=== PATIENT | male | born 1975 | race Caucasian/White ===

== ENCOUNTER 2021-06-15 11:06 | Outpatient (CLI) | payer BC ==
[2021-06-15 12:18] LABS: SARS-CoV-2 NAA Rapid Test DETECTED (NotDetected)
== END 2021-06-15 11:07 | disposition home or self-care (01) ==
LOC: ER/OP 11:06
PROVIDERS: ATTEND Pediatrics
DX: U07.1 COVID-19 (principal)
CPT/HCPCS: U0002

== ENCOUNTER 2022-11-04 11:14 | Outpatient (CLI) | payer BC ==
[2022-11-04 17:41] LABS: #Basophils 0.1 10x3/uL (0.0-0.2); #Eosinphils 0.1 10x3/uL (0.0-0.5); #Monocytes 0.6 10x3/uL (0.0-1.1); #Neutrophils 3.5 10x3/uL (1.5-8.4); %Basophils 0.9 % (0.0-2.0); %Eosinophils 1.7 % (0.0-6.0); %Lymphocytes 38.6 % (18.0-47.0); %Neutrophils 49.7 % (40.0-75.0); Hemoglobin 13.4 g/dL (13.5-17.5); Mean Corpuscular Volume 88.7 fl (81.2-95.1); Mean Platelet Volume 11.2 fl (7.4-10.4); Platelet Count 201 10x3/uL (150-450); RBC Distribution Width 11.9 % (11.5-14.5); Red Blood Cell (RBC) Count 4.32 10x6/uL (4.32-5.72)
[2022-11-04 17:50] LABS: Anion Gap 13 mmol/L (10-20); BUN (Urea Nitrogen) 23 mg/dL (8.9-20.6); Calc. Creatinine Clearance 0 mL/min (70-130); Calcium 9.5 mg/dL (7.8-10.44); Carbon Dioxide 24 mmol/L (22-29); Chloride 106 mmol/L (98-107); Estimated GFR 93; Glucose 99 mg/dL (70-105); Potassium 4.3 mmol/L (3.5-5.1); Sodium 139 mmol/L (136-145)
== END 2022-11-04 11:15 | disposition home or self-care (01) ==
LOC: LABBT 11:14
PROVIDERS: ATTEND Surgery
DX: Z01.812 Encounter for preprocedural laboratory examination (principal); K40.20 Bilateral inguinal hernia, without obstruction or gangrene, not specified as recurrent; K42.9 Umbilical hernia without obstruction or gangrene
CPT/HCPCS: 80048; 85025

== ENCOUNTER 2022-11-09 10:11 | Day surgery (SDC) | payer BC ==
[2022-11-05 16:13] VITALS: BMI 22.4
[2022-11-09] MEDS ORDERED: Levofloxacin 500 mg/D5W 100 ml Premix Bag ONE (11:17)
[2022-11-09] MEDS ORDERED: Bupivacaine/Epinephrine 0.25% 30 ML VIAL ONE (11:17)
[2022-11-09] MEDS ORDERED: Bupivacaine PF 0.5% 30 ML VIAL ONE ×2 (11:17→12:21)
[2022-11-09] MEDS ORDERED: Acetaminophen 500 MG TAB ONE (11:17)
[2022-11-09] MEDS ORDERED: Piperacillin/Tazobactam 3.375 GM VIAL ONE (11:17)
[2022-11-09] MEDS ORDERED: fentaNYL PF 100 MCG/2 ML SYRINGE ONE (11:33)
[2022-11-09] MEDS ORDERED: Midazolam HCl 2 mg/2 ml Vial ONE (11:57)
[2022-11-09] MEDS ORDERED: Lidocaine 1% PF 5 ML VIAL ONE (12:08)
[2022-11-09] MEDS ORDERED: Ketorolac Tromethamine 30 MG/ML VIAL ONE (12:08)
[2022-11-09] MEDS ORDERED: ePHEDrine 50 MG/ML VIAL ONE (12:08)
[2022-11-09] MEDS ORDERED: Rocuronium Bromide 10 MG/ML (10ML VIAL) ONE (12:08)
[2022-11-09] MEDS ORDERED: Glycopyrrolate 0.2 MG/ML 5 ML SYRINGE ONE (12:08)
[2022-11-09] MEDS ORDERED: NEOSTIGMINE 3 MG/3 ML SYR 3 MG/3 ML SYRINGE ONE (12:08)
[2022-11-09] MEDS ORDERED: PROPOFOL 200 MG/20 ML VIAL ONE (12:08)
[2022-11-09] MEDS ORDERED: Ondansetron PF 4 MG/2 ML Vial ONE ×2 (12:08→16:09)
[2022-11-09] MEDS ORDERED: Dexamethasone 20 MG/5 ML VIAL ONE (12:08)
[2022-11-09] MEDS ORDERED: Fentanyl 100 MCG/2 ML VIAL ONE (14:18)
[2022-11-09] MEDS ORDERED: Promethazine HCl 25 MG/ML VIAL ONE (16:06)
== END 2022-11-09 17:05 | disposition home or self-care (01) ==
LOC: SDC 10:11
PROVIDERS: ATTEND Surgery
PROC: 0YUA0JZ Supplement Bilateral Inguinal Region with Synthetic Substitute, Open Approach (ICD-10-PCS; principal; 2022-11-09)
PROC: 0WUF0JZ Supplement Abdominal Wall with Synthetic Substitute, Open Approach (ICD-10-PCS; principal; 2022-11-09)
DX: K40.20 Bilateral inguinal hernia, without obstruction or gangrene, not specified as recurrent (principal); K43.2 Incisional hernia without obstruction or gangrene; Z86.16 Personal history of COVID-19; Z79.899 Other long term (current) drug therapy; Z88.1 Allergy status to other antibiotic agents
CPT/HCPCS: A4306; C1781; C1889; J1100; J1885; J1956; J2250; J2405; J2543; J2550; J2704; J3010; J3490; S0020